=== PATIENT | male | born 1970 | race Caucasian/White ===

== ENCOUNTER 2021-06-28 07:11 | Emergency (ER) | payer OTHER ==
[~2021-06-28] VITALS: Ht 190.5 cm; Wt 102.1 kg
[2021-06-28] MEDS ORDERED: SULTRIDS PO (07:42)
== END 2021-06-28 07:47 | disposition home or self-care (01) ==
LOC: ER 07:11
DX: L73.9 Follicular disorder, unspecified (principal); F17.210 Nicotine dependence, cigarettes, uncomplicated
CPT/HCPCS: 99282

== ENCOUNTER 2021-06-30 20:52 | Emergency (ER) | payer OTHER ==
[~2021-06-30] VITALS: Ht 193 cm; Wt 100.0 kg
[~2021-06-30 20:52] MED LIST: SULTRIDS PO
[2021-06-30] MEDS ORDERED: CEPH500 PO (22:30)
== END 2021-06-30 22:40 | disposition home or self-care (01) ==
LOC: ER 20:52
DX: L02.31 Cutaneous abscess of buttock (principal); L03.317 Cellulitis of buttock; F17.210 Nicotine dependence, cigarettes, uncomplicated
CPT/HCPCS: 99282